=== PATIENT | female | born 1955 | race Caucasian/White ===

== ENCOUNTER 2019-03-19 21:26 | Emergency (ER) | payer OTHER ==
[~2019-03-19] VITALS: Ht 167.6 cm; Wt 74.8 kg
[~2019-03-19 21:26] MED LIST: TYLENOL-CODEINE1 TAB PO
== END 2019-03-20 07:14 | disposition home or self-care (01) ==
LOC: ER 21:26
DX: K04.7 Periapical abscess without sinus (principal)